=== PATIENT | male | born 1985 | race Caucasian/White ===

== ENCOUNTER 2020-10-09 20:15 | Emergency (ER) | payer MEDICAID, OTHER ==
[~2020-10-09] VITALS: Ht 175.3 cm; Wt 92.5 kg
[2020-10-09 20:24] VITALS: BP 128/87
[2020-10-09] MEDS ORDERED: TETANUS-DIPTH-ACEL PERTUSSIS 0.5ML SYR Tdap IM ONE (22:45)
[2020-10-09] MEDS ORDERED: LIDOCAINE 1% HCL (LOCAL ANESTH.) INJ 20ML MDV ID ONE (23:30)
[2020-10-10] MEDS ORDERED: NEOMYCIN-BACITRACIN-POLYM UNITDOSE PKG TOP OINT TOP ONE
== END 2020-10-10 00:15 | disposition home or self-care (01) ==
LOC: ER 20:17
DX: S61.412A Laceration without foreign body of left hand, initial encounter (principal); W22.8XXA Striking against or struck by other objects, initial encounter; Y93.89 Activity, other specified; Y92.89 Other specified places as the place of occurrence of the external cause; Y99.8 Other external cause status
CPT/HCPCS: 12001; 73120; 90471; 90715; 99283; J2001